=== PATIENT | male | born 1970 | race Caucasian/White ===

== ENCOUNTER → 2018-03-17 | Outpatient (CLI) | payer BC ==
--- NOTE | 2018-03-17 13:35 | XR ---
EXAMINATION TYPE: XR elbow complete LT DATE OF EXAM: 03/17/2018 CLINICAL HISTORY: pain TECHNIQUE: Frontal, lateral and oblique images of the left elbow are obtained. COMPARISON: None. FINDINGS: There is no acute fracture/dislocation evident of the elbow. No abnormal fat pad signs ar e seen. The overlying soft tissue appears unremarkable. Olecranon spurring noted. IMPRESSION: There is no acute fracture or dislocation of the elbow. ICD 10 NO FRACTURE, INITIAL EVALUATION
== END ==
LOC: RADXRYALE 13:16
PROVIDERS: ATTEND Internal Medicine
DX: M25.522 Pain in left elbow (principal)

== ENCOUNTER → 2021-02-11 | Outpatient (CLI) | payer OTHER ==
--- NOTE | 2021-02-11 17:26 | MR ---
EXAMINATION TYPE: MR shoulder LT wo con DATE OF EXAM: 02/11/2021 COMPARISON: None HISTORY: Left shoulder pain and limited range of movement for 6 months. Multiplanar multiecho imaging of the left shoulder without contrast. Biceps tendon is intact. Subscapularis tendon is intact. Glenoid obed appear intact. There is minimal increased signal in the greater tuberosity of the humerus. The supraspinatus tendon shows no retraction. There is minimal small areas of increased signal within the supraspinatus tendon at the greater tuberosity of the humerus. There is small full-thickness tear seen on T2 coronal imag e 13. There is moderate spurring at the AC joint with subacromial impingement on the supraspinatus mu scle and tendon. There is small amount of fluid in the subdeltoid bursa. There is small shoulder join t effusion. IMPRESSION: Small full-thickness tear of the supraspinatus tendon and evidence of tendinitis. No retraction. Attila a in the greater tuberosity of the humerus consistent with bone bruise. Small joint effusion and subdeltoid effusion. Subacromial impingement on the supraspinatus tendon and muscle related to spur formation and edema at the AC joint.
== END | disposition home or self-care (01) ==
LOC: RADMRIMAIN 08:22
PROVIDERS: ATTEND Orthopaedic Surgery
DX: M75.122 Complete rotator cuff tear or rupture of left shoulder, not specified as traumatic (principal)

== ENCOUNTER → 2021-06-02 | Day surgery (SDC) | payer OTHER ==
[2021-05-31 08:58] VITALS: BMI 29.8
--- NOTE | 2021-06-01 13:21 | HP ---
HISTORY AND PHYSICAL CHIEF COMPLAINT: Left shoulder pain. 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 He does not recall a specific traumatic event. He is having pain with overhead use of hand at night. He also notes significant weakness. He has tried medications in addition to injections and a home exercise program without any significant relief of his symptoms. He notes daily pain that limits him. PAST MEDICAL HISTORY: Significant for hypercholesterolemia, hypertension. PAST SURGICAL HISTORY: Significant for cataract removal. CURRENT MEDICATIONS: Aspirin, atorvastatin, lisinopril, and lorazepam. ALLERGIES: HE NOTES ALLERGIES TO ZYBAN. FAMILY HISTORY: Significant for cancer. SOCIAL HISTORY: Significant for previous tobacco use and social alcohol use. REVIEW OF SYSTEMS: Sixteen-point review of systems otherwise reviewed and is noncontributory. PHYSICAL EXAMINATION: On examination, the patient is approximately 5 foot 10, 208 pounds of endomorphic habitus. HEENT exam is nonfocal. NECK is supple. On examination of his left shoulder, he is tender about the anterior subacromial space. He has moderate subacromial crepitus. Active range of motion left shoulder forward elevation 115 degrees, external rotation with arm to side 60 degrees, internal rotation to L2. Motor strength is 5 minus over 5 for external rotation and 5- over 5 for abduction. Impingement test, Neer test, and Speed test are positive. He does have some pain with cross-body abduction. His distal neurovascular exam appears intact. Left upper extremity. MRI report left shoulder 02/11/2021 shows evidence of a small full-thickness rotator cuff tear along with acromioclavicular joint arthritis and impingement. IMPRESSION: 1. Left shoulder impingement with symptomatic rotator cuff tear. 2. Left acromioclavicular joint arthritis. RECOMMENDATIONS: I talked to the patient at length regarding his condition along with treatment options. At this point, he is having significant progressive/persistent pain despite conservative measures including medications, injections and therapy. After thorough discussion, he opts to proceed with surgery. We will plan to proceed with arthroscopic evaluation with probable subacromial decompression, rotator cuff repair, and possible distal clavicular resection. We will likely perform that as an outpatient procedure. Risks and benefits were discussed at length in layman's terms. MMODL / IJN: [id number] /
[~2021-06-02] MED LIST: .fentaNYL (PF) 50 MCG/ML AMP IV ONE; .fentaNYL (PF) 50 MCG/ML AMP ONE; DEXAMETHASONE SOD PHOSPHATE 4 MG/ML 1 ML VIAL IV ONE; EPINEPHrine (PF) 1 ML in SODIUM CHLORIDE 0.9% IRRIGATIO 3,000 ML IRRIGATION ONE; HYDROmorphone 0.5 MG/0.5 ML SYRINGE IVP PRN; LACTATED RINGERS 1,000 ML IV SCH; LIDOCAINE 1% (10MG/ML) FOR IV START INTRADERMA ONE; LIDOCAINE 1% INJ 10MG/ML (20 ML MDV) ONE; MIDAZOLAM 2 MG/2 ML VIAL IV PRN; MIDAZOLAM 2 MG/2 ML VIAL ONE; ONDANSETRON 4 MG/2 ML VIAL IVP ONE; PHENYLEPHRINE-0.9% NACL SYG 1,000 MCG/10 ML SYRINGE ONE; PROPOFOL 10 MG/ML 20 ML VIAL IV ONE; ROPIVACAINE 5 MG/ML 30 ML VIAL ONE; SCOPOLAMINE 1.5MG/72HR PATCH TRANSDERM ONE; SUCCINYLCHOLINE CHLORIDE 100 MG/5 ML SYR IV ONE; ePHEDrine 50 MG/ML 1 ML AMP ONE
--- NOTE | 2021-06-02 07:57 | P.ANPRN ---
Procedure Note - Anesthesia - Nerve Block Performed Left Interscalene Time Out Performed: Yes (07:35) Date of Procedure: 06/02/21 Procedure Start Time: :35 Procedure Stop Time: :43 Location of Patient: PreOp Indication: Acute Post-Operative Pain, Requested by Surgeon (Dr Vera) Sedation Type: Sedate with meaningful contact maintained Preparation: Sterile Prep Position: Supine Catheter: None Needle Types: Pajunk Needle Gauge: Other (see comment) (22g) Ultrasound used to visualize needle placement: Yes Ultrasound used to observe medication spread: Yes Injectate: 0.5% Ropivacaine (see comment for volume) (20cc) Blood Aspirated: No Pain Paresthesia on Injection Noted: No Resistance on Injection: Normal Image Stored and Saved: Yes Events: Uneventful and Well Tolerated
--- NOTE | 2021-06-02 09:25 | P.OP ---
Date of Procedure: 06/02/21 Preoperative Diagnosis: Symptomatic left rotator cuff tear/impingement Postoperative Diagnosis: Same in addition to type II superior labral tear Procedure(s) Performed: Left shoulder arthroscopic superior labral debridement/rotator cuff repair/subacromial decompression Implants: Arthrex 4.75 mm swivel lock anchor times one, 5.5 mm swivel lock anchor 1 Anesthesia: stefanie OSBORNE Surgeon: Selwyn Vera Deputy Sheriff Lieutenant #1: Navid Miramontes Estimated Blood Loss (ml): 10 Pathology: none sent Condition: stable Disposition: PACU Indications for Procedure: The patient's a 51-year-old male who presents with progressive left shoulder pain despite conservative measures. A discussion of the risks and benefits of operative intervention versus continued conservative measures was made with the patient. He opted to proceed with surgery. Operative risks to include infection, neurovascular injury, development of blood clots, possible tendon rerupture, possible postoperative stiffness and need for subsequent procedures was discussed. Informed consent was obtained. Operative Findings: As below Description of Procedure: The patient was brought to the operating room, and after induction of general anesthesia was placed in a beachchair position. A preoperative interscalene block was placed for postoperative analgesia. I examined the left shoulder. There was no gross block to passive motion or gross glenohumeral instability. The left upper extremity was prepped and draped in normal fashion. The bony outlines the acromion, distal clavicle, and coracoid process were outlined with a skin marker. The glenohumeral joint was inflated with 50 mL of saline utilizing a spinal needle from posterior approach. A posterior portal was made through a 5 mm skin incision 1 cm medial and inferior to the posterior lateral border of the acromion. A blunt trocar was used to easily into the joint. Diagnostic arthroscopy was performed. An anterior portal was made just lateral to the coracoid process entering the joint above the subscapularis tendon. The subscapularis tendon appeared to be intact. Anterior labrum was intact. The inferior recess was inspected. The posterior labrum was intact. On inspection of the biceps anchor, a type II superior labral tear was noted and this was debrider back to stable base with a motorized shaver. The biceps itself appeared to be intact. On inspection the rotator cuff, a full-thickness tear involving the anterior aspect the supraspinatus was noted. The arthroscope was then placed into the subacromial space. A lateral portal was made 2 centimeters inferior to the anterior lateral border of the acromion. The rotator cuff tear was identified and the edges were debrided with a motorized shaver. This was then easily brought back to the greater tuberosity. The soft tissue on the undersurface of the acromion was debrided with a motorized shaver and electrocautery clearly defining the anterior medial and lateral borders as well as the distal clavicle. An anterior inferior acromioplasty was performed with a motorized zofia starting anterolateral, then extending this posteriorly, then extending this medially. I converted to a flat acromion and this was verified in the posterior and lateral viewing portals. The greater tuberosity was lightly decorticating with a shaver down to a bleeding bony surface. An accessory superior lateral portals made just off the lateral edge of the acromion for anchor placement. A 4.75 mm swivel lock anchor preloaded with #2 fiber tape was then placed just off the articular surface with the appropriate starting awl. Good purchase was obtained. These fiber tapes were then passed the rotator cuff with a scorpion suture passer. A fiber length suture was placed in the center portion of the tear for additional compression. A lateral anchor was then placed utilizing the appropriate starting awl. A 5.5 mm swivel lock anchor was placed with good purchase. Final arthroscopic view showed adequate compression at the footprint. The arthroscope was then removed. The portals were closed with simple 3-0 nylon sutures. A sterile dressing was applied in addition to a sling. The patient was then awoken from general anesthesia and transferred to recovery room in good condition. Blood loss was estimated at 10 mL. No complications were incurred. Sponge and needle counts were correct in the case. Navid IVEY assisted and the major components of the case to include arm positioning, anchor placement, and rotator cuff repair.
[2021-06-02 09:34] VITALS: TEMP 97.4
[2021-06-02 10:18] VITALS: PULSE 78
[2021-06-02 10:30] VITALS: RESP 17
[2021-06-02 10:56] VITALS: BP 137/64
== END | disposition home or self-care (01) ==
LOC: OR 06:08
PROVIDERS: ATTEND Orthopaedic Surgery
DX: M75.102 Unspecified rotator cuff tear or rupture of left shoulder, not specified as traumatic (principal); S43.432A Superior glenoid labrum lesion of left shoulder, initial encounter; E78.00 Pure hypercholesterolemia, unspecified; I10 Essential (primary) hypertension; Z87.891 Personal history of nicotine dependence
CPT/HCPCS: 29822; 29827; 29826; 64415; 76942; C1713 ×3; C1894; J2250; J1100; J0690; J2405; J0171; J2001; J3010; J2795; J2370; J0330; J2704

== ENCOUNTER → 2023-05-16 | Outpatient (CLI) | payer BC ==
--- NOTE | 2023-05-17 11:14 | CA ---
Transthoracic Echo Report Name: Joao Beltran Age: 53 Gender: M : 1970 Exam Date: 05/16/2023 14:21 Exam Location: [place] [facility] Ht (in): 70 Wt (lb): 219 Ordering Physician: Edelmira Gibbs MD Attending/Referring Phys: Home Service Advisor Ya Baires RDCS Procedure CPT: Indications: R01.1 Murmur Cardiac Hx: Technical Quality: Fair Contrast 1: Total Dose (mL): Contrast 2: Total Dose (mL): MEASUREMENTS (Male / Female) Normal Values 2D ECHO LV Diastolic Diameter PLAX 4.0 cm 4.2 - 5.9 / 3.9 - 5.3 cm LV Systolic Diameter PLAX 2.8 cm IVS Diastolic Thickness 1.2 cm 0.6 - 1.0 / 0.6 - 0.9 cm LVPW Diastolic Thickness 1.1 cm 0.6 - 1.0 / 0.6 - 0.9 cm LV Relative Wall Thickness 0.6 RV Internal Dim ED PLAX 4.2 cm LA Volume 47.7 cm??? 18 - 58 / 22 - 52 cm??? LA Volume Index 21.3 cm???/m??? 16 - 28 cm???/m??? M-MODE Aortic Root Diameter MM 2.7 cm LA Systolic Diameter MM 3.9 cm LA Ao Ratio MM 1.4 AV Cusp Separation MM 2.1 cm DOPPLER AV Peak Velocity 148.1 cm/s AV Peak Gradient 8.8 mmHg AV Mean Velocity 106.4 cm/s AV Mean Gradient 5.0 mmHg AV Velocity Time Integral 30.8 cm LVOT Peak Velocity 150.2 cm/s LVOT Peak Gradient 9.0 mmHg LVOT Velocity Time Integral 27.7 cm MV Area PHT 3.3 cm??? Mitral E Point Velocity 69.1 cm/s Mitral A Point Velocity 76.1 cm/s Mitral E to A Ratio 0.9 MV Deceleration Time 228.2 ms MV E' Velocity 6.6 cm/s Mitral E to MV E' Ratio 10.4 TR Peak Velocity 171.9 cm/s TR Peak Gradient 11.8 mmHg Right Ventricular Systolic Press 16.4 mmHg FINDINGS Left Ventricle Mildly increased left ventricular wall thickness. Left ventricular cavity size normal. Normal left ventricular systolic function with no obvious regional wall motion abnormalities. Left ventricular ejection fraction is estimated at 55-60 %. Right Ventricle Right ventricular dilatation. Right ventricular systolic pressure within normal limits. Right Atrium Normal right atrial size. Left Atrium Normal left atrial size. Mitral Valve Structurally normal mitral valve. No mitral stenosis. Mild mitral regurgitation. Aortic Valve Trileaflet aortic valve. No aortic valve stenosis or regurgitation. Tricuspid Valve Structurally normal tricuspid valve. Mild tricuspid regurgitation. Pulmonic Valve Structurally normal pulmonic valve. Trace pulmonic regurgitation. Pericardium No pericardial effusion. Aorta Normal size aortic root and proximal ascending aorta. CONCLUSIONS Normal LV size and systolic function. Mild mitral and tricuspid regurgitation. No pulmonary hypertension. No pericardial effusion Previewed by: Dr. Micha Saldana MD (Electronically Signed) Final Date: 17 May 2023 11:14
== END | disposition home or self-care (01) ==
LOC: RADECHMAIN 14:07
PROVIDERS: ATTEND Internal Medicine
DX: I08.1 Rheumatic disorders of both mitral and tricuspid valves (principal); R01.1 Cardiac murmur, unspecified
CPT/HCPCS: 93306